=== PATIENT | female | born 1985 | race Caucasian/White ===

== ENCOUNTER → 2017-08-14 | Outpatient (CLI) | payer MEDICAID | LOC: FIMAGING 07:43 | PROVIDERS: ATTEND Obstetrics & Gynecology | DX: Z36.89 Encounter for other specified antenatal screening (principal); Z3A.20 20 weeks gestation of pregnancy; O34.219 Maternal care for unspecified type scar from previous cesarean delivery ==

== ENCOUNTER → 2017-09-11 | Outpatient (CLI) | payer MEDICAID | LOC: FIMAGING 13:55 | PROVIDERS: ATTEND Obstetrics & Gynecology | DX: O09.292 Supervision of pregnancy with other poor reproductive or obstetric history, second trimester (principal); Z3A.24 24 weeks gestation of pregnancy ==

== ENCOUNTER 2017-10-10 15:30 | Observation (INO) | payer MEDICAID ==
--- NOTE | 2017-10-10 19:08 | GHP ---
[f rep st] PREOP HISTORY AND PHYSICAL DATE OF ADMISSION: 10/10/2017 REASON FOR VISIT: Fall in , at 29 weeks' gestation. Patient's estimated date of confinemen t is 12/31/2017, dated by last menstrual period of 03/21/2017, consistent with a first trimester ultr asound. Patient's has been uncomplicated. She was playing in the park today and one of he r friend's kids jumped off a bench and kicked her knee sideways and patient fell down. She was total ly surprised by this happening, so she did not have time to brace herself and she hit. She landed on her side. She temporarily had decreased movement for a few minutes following that. The baby' s movement has returned to normal. She had some mild cramping, but has not had any cramping si nce then. She came in for evaluation. She says she did think she peed her pants at the time of that happening, but has not had any further leaking of fluid at all. Patient has been on a monitor for t he last 2 hours. status is appropriate for gestational age and reassuring. She is having occa sional mild cramping. She is stating she has good movement, no further loss of fluid, no vagin al bleeding. She denies any headache or changes in vision. Patient's blood type is O positive. Kle ihauer-Betke is pending. ASSESSMENT AND PLAN: A 32-year-old, 3, para 1-0-1-1, at 29 weeks' gestation status post fall . Patient has had reassuring testing for the last 2 hours. A Kleihauer-Betke is pending. Patient was given kick counts and precautions and abruption precautions. She has an appoint ment tomorrow and will follow up in the office tomorrow. Patient is to call us overnight if anything changes, if she has any abdominal pain, increased cramping or vikas or decreased movemen t. /[id number]/MODL
== END 2017-10-10 18:40 | disposition home or self-care (01) ==
LOC: FLD 15:30
PROVIDERS: ADMIT Obstetrics & Gynecology; ATTEND Obstetrics & Gynecology
DX: Z04.3 Encounter for examination and observation following other accident (principal); W19.XXXA Unspecified fall, initial encounter; Z3A.29 29 weeks gestation of pregnancy
CPT/HCPCS: G0378